=== PATIENT | male | born 1960 ===

== ENCOUNTER 2017-07-07 20:35 | Emergency (ER) | payer MEDICAID ==
[2017-07-07 20:41] VITALS: BP 135/74; PULSE 61; RESP 18; TEMP 98.6; O2SAT 99
--- NOTE | 2017-07-07 21:04 | ED PDOC ---
Lower Extremity Pain/Injury Time Seen by Provider: 07/07/17 20:50 Chief Complaint (Nursing): Lower Extremity Problem/Injury Chief Complaint (Provider): Right Ankle Injury History Per: Patient History/Exam Limitations: no limitations Onset/Duration Of Symptoms: Hrs (x3) Current Symptoms Are (Timing): Still Present Additional Complaint(s): Linus Curtis is a 57 year old male presenting to the ED for an evaluation of right ankle pain that began around 18:00 this evening after slipping and inverting his right ankle while walking today. He reports pain to the lateral aspect of his right ankle, worsening with ambulation. He reports still being able to ambulate. The patient did not take any medications for the pain. PMD: None Provided Past Medical History Reviewed: Historical Data, Nursing Documentation, Vital Signs Vital Signs: Last Vital Signs Temp 98.6 F 07/07/17 20:37 Pulse 61 07/07/17 20:37 Resp 18 07/07/17 20:37 BP 135/74 07/07/17 20:37 Pulse Ox 99 07/07/17 20:37 - Medical History PMH: No Chronic Diseases - Family History Family History: States: Unknown Family Hx - Allergies Allergies/Adverse Reactions: Allergies Allergy/AdvReac Type Severity Reaction Status Date / Time No Known Allergies Allergy Verified 07/07/17 20:37 Review of Systems ROS Statement: Except As Marked, All Systems Reviewed And Found Negative Musculoskeletal: Positive for: Foot Pain (pain to lateral aspect of right ankle) Physical Exam - Reviewed Nursing Documentation Reviewed: Yes Vital Signs Reviewed: Yes - Physical Exam Appears: Positive for: Non-toxic, No Acute Distress Head Exam: Positive for: ATRAUMATIC, NORMOCEPHALIC Extremity: Positive for: Normal ROM (to right foot), Tenderness (posteriorly to right lateral mallelous ). Negative for: Swelling (no edema), Other (no ecchymosis) Neurologic/Psych: Positive for: Alert, Oriented (x3). Negative for: Motor/ Sensory Deficits - ECG O2 Sat by Pulse Oximetry: 99 (RA) Pulse Ox Interpretation: Normal - Radiology X-Ray: Interpreted by Ne X-Ray Interpretation: No Acute Disease Medical Decision Making Medical Decision Making: Time: 20:50 Impression: Right ankle injury Plan: * Tylenol 650 mg PO * [RAD] Ankle Right 3 Views Routine * Reevaluation Call placed to podiatry resident, Dr. Mayo, who evaluated patient in ED and reviewed x-rays. He agrees patient likely has ankle sprain. He placed ankle compressive dressing and surgical shoe, advised patient to apply ice, take Ibuprofen OTC for pain, and f/u with the podiatry clinic if needed. Patient expressed understanding and agreement. Scribe Attestation: Documented by Marleen Baker, acting as a scribe for Sue Serna PA-C. Provider Scribe Attestation: All medical record entries made by the Scribe were at my direction and personally dictated by me. I have reviewed the chart and agree that the record accurately reflects my personal performance of the history, physical exam, medical decision making, and the department course for this patient. I have also personally directed, reviewed, and agree with the discharge instructions and disposition. Disposition - Clinical Impression Clinical Impression: Ankle pain, right - Patient ED Disposition Is Patient to be Admitted: No Counseled Patient/Family Regarding: Studies Performed, Diagnosis, Need For Followup, Rx Given - Disposition Referrals: Podiatry Clinic [Outside] Disposition: Routine/Home Disposition Time: 21:53 Condition: STABLE Additional Instructions: ICE ANKLE, KEEP LEG ELEVATED. TAKE OTC TYLENOL OR IBUPROFEN. F/U WITH PODIATRY CLINIC INSTRUCTED. Instructions: Ankle Sprain (ED) Forms: [email or web address] (Portuguese) Print Language: KHMER
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
--- NOTE | 2017-07-08 11:33 | RAD ---
PROCEDURE: Right Ankle Radiographs. HISTORY: pain COMPARISON: None FINDINGS: BONES: Normal. No fracture. JOINTS: Normal. No osteoarthritis. Ankle mortise maintained. Talar dome intact SOFT TISSUES: Normal. OTHER FINDINGS: None. IMPRESSION: Normal right ankle radiographs.
== END 2017-07-07 22:20 | disposition home or self-care (01) ==
LOC: H.ER 20:35
DX: S93.401A Sprain of unspecified ligament of right ankle, initial encounter (principal); X50.9XXA Other and unspecified overexertion or strenuous movements or postures, initial encounter; Y92.89 Other specified places as the place of occurrence of the external cause